=== PATIENT | male | born 1965 | race Caucasian/White ===

== ENCOUNTER 2016-11-02 20:11 | Emergency (ER) | payer SELFPAY ==
[~2016-11-02] VITALS: Ht 152.4 cm; Wt 62.0 kg
[~2016-11-02 20:11] MED LIST: CEPH500T PO
[2016-11-02] MEDS ORDERED: SODIUM CHLORIDE 0.9% 1,000 ML IV ONE (23:40)
[2016-11-02] MEDS ORDERED: LORAZEPAM 2MG/ML CPJ IV STA (23:40)
[2016-11-03 00:04] LABS: EOSINOPHILS % 3.4 % (0.0-5.0); HEMATOCRIT. 37.4 % (42.0-52.0); HEMOGLOBIN. 12.8 g/dL (14.0-18.0); LYMPHOCYTES % 39.7 % (20.0-50.0); MEAN CORPUSCULAR HEMOGLOBIN 31.6 pg (28.0-32.0); MEAN CORPUSCULAR VOLUME 92.2 fL (80.0-94.0); MEAN PLATELET VOLUME 7.9 fl (7.4-10.4); MONOCYTES % 11.5 % (2.0-8.0); NEUTROPHILS % 42.4 % (40.0-76.0); PLATELET 97 x1000/uL (130-400); RED BLOOD CELL COUNT 4.06 mill/uL (4.7-6.1); RED CELL DISTRIBUTION WIDTH 16.5 % (11.6-14.6)
[2016-11-03 00:10] LABS: CLARITY URINE CLEAR (CLEAR); COLOR URINE YELLOW (YELLOW); GLUCOSE URINE NEGATIVE (NEGATIVE); KETONES URINE NEGATIVE (NEGATIVE); LEUKOCYTE ESTERASE URINE NEGATIVE (NEGATIVE); NITRITE URINE NEGATIVE (NEGATIVE); OCCULT BLOOD URINE NEGATIVE (NEGATIVE); PH URINE 5.5 (4.5-8.0); PROTEIN URINE NEGATIVE (NEGATIVE); UROBILINOGEN URINE 0.2 E.U./dL (0.2-1.0)
[2016-11-03 00:21] LABS: *AMPHETAMINES SCREEN URINE NEGATIVE (NEGATIVE); *BARBITURATES SCREEN URINE NEGATIVE (NEGATIVE); *BENZODIAZEPINES SCREEN URINE NEGATIVE (NEGATIVE); *COCAINE SCREEN URINE NEGATIVE (NEGATIVE); CANNABINOID URINE SCREEN NEGATIVE (NEGATIVE); METHADONE URINE SCREEN NEGATIVE (NEGATIVE); OPIATES URINE SCREEN NEGATIVE (NEGATIVE); PHENCYCLIDINE URINE SCREEN NEGATIVE (NEGATIVE)
[2016-11-03 00:24] LABS: CARBON DIOXIDE 25 mEq/L (21-32); CHLORIDE 105 mEq/L (98-107); CREATINE KINASE 222 IU/L (39-308); ETHANOL BLOOD 294 mg/dL
[2016-11-03] MEDS ORDERED: FOLIC ACID 1 MG, THIAMINE HCL 100 MG, MVI, ADULT NO.1 10 ML in DEXTROSE 5% WATER 1,000 ML IV ONE ×4 (02:45)
[2016-11-03] MEDS ORDERED: LANSOPRAZOLE 30MG DR CAPSULE NG ONE (08:00)
[2016-11-03] MEDS ORDERED: LORAZEPAM 1MG TABLET PO ONE (08:00)
[2016-11-03 10:13] VITALS: BP 120/78
== END 2016-11-03 11:00 | disposition home or self-care (01) ==
LOC: ER 20:11
DX: R10.9 Unspecified abdominal pain (principal); F10.239 Alcohol dependence with withdrawal, unspecified; K70.30 Alcoholic cirrhosis of liver without ascites; Y90.8 Blood alcohol level of 240 mg/100 ml or more; R06.02 Shortness of breath; I10 Essential (primary) hypertension; D72.819 Decreased white blood cell count, unspecified; D69.6 Thrombocytopenia, unspecified
CPT/HCPCS: 36415; 80053; 80305; 81003; 82550; 82962; 83690; 84443; 85025; 93005; 96361; 96365; 96366; 96375; 99285; G0482; J2060; J3411; J3490; J7030; J7070; Z7610

== ENCOUNTER 2017-02-04 18:24 | Emergency (ER) | payer MEDICAID ==
[~2017-02-04] VITALS: Ht 157.5 cm; Wt 70.0 kg
[2017-02-04 18:27] VITALS: BP 149/98
== END 2017-02-04 19:12 | disposition left against medical advice (07) ==
LOC: ER 18:40
DX: M25.561 Pain in right knee (principal); Z53.21 Procedure and treatment not carried out due to patient leaving prior to being seen by health care provider

== ENCOUNTER 2017-06-27 09:59 | Emergency (ER) | payer MEDICAID ==
[~2017-06-27] VITALS: Ht 152.4 cm; Wt 58.0 kg
[2017-06-27 13:50] VITALS: BP 112/78
== END 2017-06-27 14:07 | disposition home or self-care (01) ==
LOC: ER 10:54
DX: R21 Rash and other nonspecific skin eruption (principal)
CPT/HCPCS: 99283

== ENCOUNTER 2017-07-22 09:44 | Emergency (ER) | payer MEDICAID ==
[~2017-07-22] VITALS: Ht 152.4 cm; Wt 58.0 kg
[2017-07-22] MEDS ORDERED: ACETAMINOPHEN 325MG TABLET PO STA (10:00)
[2017-07-22 10:25] LABS: CLARITY URINE CLEAR (CLEAR); COLOR URINE YELLOW (YELLOW); KETONES URINE NEGATIVE (NEGATIVE); LEUKOCYTE ESTERASE URINE NEGATIVE (NEGATIVE); NITRITE URINE NEGATIVE (NEGATIVE); OCCULT BLOOD URINE NEGATIVE (NEGATIVE); PROTEIN URINE NEGATIVE (NEGATIVE); SPECIFIC GRAVITY URINE 1.006 (1.005-1.030); UROBILINOGEN URINE 0.2 E.U./dL (0.2-1.0)
[2017-07-22 11:15] LABS: BASOPHILS % 0.9 % (0.0-2.0); EOSINOPHILS % 4.6 % (0.0-5.0); HEMATOCRIT. 40.1 % (42.0-52.0); LYMPHOCYTES % 30.4 % (20.0-50.0); MEAN CORPUSCULAR HEMOGLOBIN 31.9 pg (28.0-32.0); MEAN CORPUSCULAR VOLUME 91.7 fL (80.0-94.0); MEAN PLATELET VOLUME 7.4 fl (7.4-10.4); MONOCYTES % 11.2 % (2.0-8.0); NEUTROPHILS % 52.9 % (40.0-76.0); PLATELET 196 x1000/uL (130-400); RED BLOOD CELL COUNT 4.37 mill/uL (4.7-6.1); RED CELL DISTRIBUTION WIDTH 14.6 % (11.6-14.6)
[2017-07-22 11:22] LABS: CHLORIDE 102 mEq/L (98-107); PROTHROMBIN TIME 10.4 sec (9.4-11.6)
[2017-07-22] MEDS ORDERED: ACETAMINOPHEN 325MG TABLET PO NR (14:22)
[2017-07-22 20:40] VITALS: BP 114/73
== END 2017-07-22 20:45 | disposition home or self-care (01) ==
LOC: ER 09:58
DX: K29.00 Acute gastritis without bleeding (principal); L40.9 Psoriasis, unspecified; F10.10 Alcohol abuse, uncomplicated; Y90.9 Presence of alcohol in blood, level not specified
CPT/HCPCS: 36415; 74176; 80053; 81003; 83690; 85025; 85610; 99285; Z7610

== ENCOUNTER 2017-07-28 14:57 | Emergency (ER) | payer MEDICAID ==
[~2017-07-28] VITALS: Ht 162.6 cm; Wt 61.0 kg
[2017-07-28] MEDS ORDERED: SODIUM CHLORIDE 0.9% 1,000 ML IV ONE ×2 (15:26→18:30)
[2017-07-28] MEDS ORDERED: ONDANSETRON HCL 4MG/2ML VIAL IV STA ×2 (15:26→18:30)
[2017-07-28] MEDS ORDERED: MAGNESIUM/ALUMINUM HYDROXIDE/SIMETHICONE 30ML UDC PO ONE (15:30)
[2017-07-28] MEDS ORDERED: VISCOUS LIDOCAINE 2% 15 ML UDC MM PRN (15:30)
[2017-07-28] MEDS ORDERED: KETOROLAC 30MG/ML VIAL IV ONE (15:30)
[2017-07-28] MEDS ORDERED: FAMOTIDINE 20MG/2ML VIAL IV ONE (15:30)
[2017-07-28 16:07] LABS: BASOPHILS % 1.4 % (0.0-2.0); HEMATOCRIT. 40.9 % (42.0-52.0); HEMOGLOBIN. 14.4 g/dL (14.0-18.0); LYMPHOCYTES % 38.2 % (20.0-50.0); MEAN CORPUSCULAR HEMOGLOBIN 32.3 pg (28.0-32.0); MEAN CORPUSCULAR VOLUME 91.7 fL (80.0-94.0); MEAN PLATELET VOLUME 7.5 fl (7.4-10.4); MONOCYTES % 7.6 % (2.0-8.0); NEUTROPHILS % 48.8 % (40.0-76.0); PLATELET 178 x1000/uL (130-400); RED BLOOD CELL COUNT 4.46 mill/uL (4.7-6.1); RED CELL DISTRIBUTION WIDTH 14.8 % (11.6-14.6)
[2017-07-28 16:11] LABS: CHLORIDE 105 mEq/L (98-107)
[2017-07-28 16:36] LABS: ETHANOL BLOOD 392 mg/dL
[2017-07-28] MEDS ORDERED: FAMOTIDINE 20MG/2ML VIAL IV STA (18:30)
[2017-07-28 18:34] LABS: CLARITY URINE CLEAR (CLEAR); COLOR URINE YELLOW (YELLOW); KETONES URINE NEGATIVE (NEGATIVE); LEUKOCYTE ESTERASE URINE NEGATIVE (NEGATIVE); NITRITE URINE NEGATIVE (NEGATIVE); OCCULT BLOOD URINE NEGATIVE (NEGATIVE); PH URINE 6.5 (4.5-8.0); PROTEIN URINE NEGATIVE (NEGATIVE); SPECIFIC GRAVITY URINE 1.008 (1.005-1.030); UROBILINOGEN URINE 0.2 E.U./dL (0.2-1.0)
[2017-07-29 03:15] VITALS: BP 123/80
== END 2017-07-29 02:00 | disposition home or self-care (01) ==
LOC: ER 14:59
DX: K29.20 Alcoholic gastritis without bleeding (principal); T51.0X1A Toxic effect of ethanol, accidental (unintentional), initial encounter; Y90.8 Blood alcohol level of 240 mg/100 ml or more
CPT/HCPCS: 36415; 74176; 80053; 81003; 83690; 85025; 96361; 96374; 96375; 96376; 99285; G0482; J1885; J2405; J3490; J7030

== ENCOUNTER 2017-11-25 12:24 | Emergency (ER) | payer MEDICAID ==
[~2017-11-25] VITALS: Ht 162.6 cm; Wt 68.0 kg
[2017-11-25 17:35] LABS: BASOPHILS % 2.5 % (0.0-2.0); CHLORIDE 107 mEq/L (98-107); EOSINOPHILS % 3.9 % (0.0-5.0); HEMATOCRIT. 41.2 % (42.0-52.0); HEMOGLOBIN. 13.8 g/dL (14.0-18.0); LYMPHOCYTES % 38.5 % (20.0-50.0); MEAN CORPUSCULAR HEMOGLOBIN 31.1 pg (28.0-32.0); MEAN CORPUSCULAR VOLUME 93.1 fL (80.0-94.0); MEAN PLATELET VOLUME 7.9 fl (7.4-10.4); MONOCYTES % 13.9 % (2.0-8.0); NEUTROPHILS % 41.2 % (40.0-76.0); PLATELET 149 x1000/uL (130-400); RED BLOOD CELL COUNT 4.43 mill/uL (4.7-6.1); RED CELL DISTRIBUTION WIDTH 14.5 % (11.6-14.6)
[2017-11-25 17:39] LABS: ETHANOL BLOOD 299 mg/dL
[2017-11-25] MEDS ORDERED: PANTOPRAZOLE SODIUM 40 MG/VIAL IV NR (18:31)
[2017-11-25] MEDS ORDERED: SODIUM CHLORIDE 0.9% 1,000 ML IV NR (18:31)
[2017-11-25] MEDS ORDERED: ONDANSETRON HCL 4MG/2ML VIAL IV NR (18:31)
[2017-11-25 18:47] LABS: CLARITY URINE CLEAR (CLEAR); COLOR URINE YELLOW (YELLOW); KETONES URINE NEGATIVE (NEGATIVE); LEUKOCYTE ESTERASE URINE NEGATIVE (NEGATIVE); NITRITE URINE NEGATIVE (NEGATIVE); OCCULT BLOOD URINE NEGATIVE (NEGATIVE); PROTEIN URINE NEGATIVE (NEGATIVE); SPECIFIC GRAVITY URINE 1.006 (1.005-1.030); UROBILINOGEN URINE 0.2 E.U./dL (0.2-1.0)
[2017-11-25 19:02] LABS: PROTHROMBIN TIME 10.5 sec (9.4-11.6)
[2017-11-26 01:57] VITALS: BP 138/85
== END 2017-11-26 02:02 | disposition home or self-care (01) ==
LOC: ER 12:24
DX: K29.00 Acute gastritis without bleeding (principal); F10.129 Alcohol abuse with intoxication, unspecified
CPT/HCPCS: 36415; 74176; 80053; 81003; 83605; 83690; 85025; 85610; 96361; 96374; 96375; 99285; C9113; G0482; J2405; J7030; Z7610

== ENCOUNTER 2018-05-28 15:15 | Emergency (ER) | payer SELFPAY ==
[~2018-05-28] VITALS: Ht 152.4 cm; Wt 54.5 kg
[2018-05-28 15:47] VITALS: BP 126/91
== END 2018-05-28 19:30 | disposition left against medical advice (07) ==
LOC: ER 15:15
DX: I10 Essential (primary) hypertension (principal); R07.89 Other chest pain; R00.2 Palpitations; R42 Dizziness and giddiness; F10.20 Alcohol dependence, uncomplicated; Z53.21 Procedure and treatment not carried out due to patient leaving prior to being seen by health care provider; Y90.9 Presence of alcohol in blood, level not specified
CPT/HCPCS: 93005

== ENCOUNTER 2018-08-14 15:07 | Emergency (ER) | payer SELFPAY ==
[~2018-08-14] VITALS: Ht 152.4 cm; Wt 57.0 kg
[2018-08-14 16:01] LABS: CLARITY URINE CLEAR (CLEAR); COLOR URINE YELLOW (YELLOW); KETONES URINE NEGATIVE (NEGATIVE); LEUKOCYTE ESTERASE URINE NEGATIVE (NEGATIVE); NITRITE URINE NEGATIVE (NEGATIVE); OCCULT BLOOD URINE NEGATIVE (NEGATIVE); PROTEIN URINE NEGATIVE (NEGATIVE); SPECIFIC GRAVITY URINE 1.002 (1.005-1.030); UROBILINOGEN URINE 0.2 E.U./dL (0.2-1.0)
[2018-08-14] MEDS ORDERED: CYANOCOBALAMIN 1000MCG/ML VIAL IM ONE (17:30)
[2018-08-14] MEDS ORDERED: SODIUM CHLORIDE 0.9% 1,000 ML IV ONE (17:30)
[2018-08-14 17:40] LABS: HEMATOCRIT 37.5 % (42.0-52.0); HEMOGLOBIN 12.9 g/dL (14.0-18.0); MEAN CORPUSCULAR HEMOGLOBIN 31.2 pg (28.0-32.0); MEAN CORPUSCULAR VOLUME 90.8 fL (80.0-94.0); PLATELET 146 x1000/uL (130-400); RED BLOOD CELL COUNT 4.14 mill/uL (4.7-6.1)
[2018-08-14 17:44] LABS: CHLORIDE 100 mEq/L (98-107)
[2018-08-14 17:57] LABS: ETHANOL BLOOD 375 mg/dL
[2018-08-15 03:26] VITALS: BP 110/74
== END 2018-08-15 03:31 | disposition home or self-care (01) ==
LOC: ER 15:07
DX: F10.229 Alcohol dependence with intoxication, unspecified (principal); D72.819 Decreased white blood cell count, unspecified; D64.9 Anemia, unspecified; E83.51 Hypocalcemia; R79.89 Other specified abnormal findings of blood chemistry; M43.9 Deforming dorsopathy, unspecified; I10 Essential (primary) hypertension; Y90.8 Blood alcohol level of 240 mg/100 ml or more
CPT/HCPCS: 36415; 71045; 80053; 80320; 81003; 85027; 93005; 96360; 96372; 99284; J3420; J7030; G0480

== ENCOUNTER 2018-10-03 15:40 | Emergency (ER) | payer SELFPAY | END 2018-10-03 16:48 | disposition left against medical advice (07) | LOC: ER 15:40 | DX: R10.9 Unspecified abdominal pain (principal); Z53.21 Procedure and treatment not carried out due to patient leaving prior to being seen by health care provider ==

== ENCOUNTER 2018-12-02 11:55 | Emergency (ER) | payer SELFPAY | END 2018-12-02 13:18 | disposition left against medical advice (07) | LOC: ER 11:55 | DX: Z53.21 Procedure and treatment not carried out due to patient leaving prior to being seen by health care provider (principal) ==